=== PATIENT | male | born 1995 | race Caucasian/White ===

== ENCOUNTER 2019-05-29 03:27 | Emergency (ER) | payer SELFPAY ==
[2019-05-29] MEDS ORDERED: PIPERACILLIN/TAZOBACTAM 4.5 GM VIAL IV ONE ×2 (03:40→07:34)
--- NOTE | 2019-05-29 03:40 | ER Document Report ---
ED General - General Stated Complaint: POSS OVERDOSE Time Seen by Provider: 05/29/19 03:39 Notes: Patient is a 24-year-old male that presents to the emergency department for chief complaint of respiratory distress, after heroin overdose. History provided by EMS, apparently the patient was using heroin by snorting it this evening, and was unresponsive, no one was called, first responding police gave the patient 8 mg of intranasal Narcan, but he was still cyanotic per EMS, and unresponsive, they established an IV and gave him 1 mg IV, placed him on supplemental oxygen as his initial pulse ox was 77% on room air, I placed him on CPAP, and improved his pulse ox only to 84%, he was given a breathing treatment but it did not help, Nitropaste was added, as they are concerned about possible flash pulmonary edema. At this time the patient is alert, somnolent, but will answer questions, he does have nausea, but did not vomit apparently. He is not having any pain, but is having significant increased work of breathing, and is unable to bowl to provide any further history at this time. Past medical history obtained from EMS Past Medical History: Hypertension Past Surgical History: Unknown at this time Social History: Smokes cigarettes, and uses heroin, per brother, has not used heroin in a while. Family History: Reviewed and noncontributory for presenting illness Allergies: Reviewed, see documented allergy list. REVIEW OF SYSTEMS: Complete review of systems is not obtainable at this time secondary to the patient's current critical state. PHYSICAL EXAMINATION: Vital signs reviewed, nursing noted reviewed. GENERAL: Somnolent, acute respiratory distress, on CPAP currently, increased work of breathing HEAD: Atraumatic, normocephalic. EYES: extraocular movements intact, sclera anicteric, conjunctiva are normal. Pupils are mydriatic. PERRLA. ENT: nares patent, oropharynx clear without exudates. Moist mucous membranes. NECK: Normal range of motion, supple without lymphadenopathy LUNGS: Coarse lung sounds throughout, diminished more on the left compared to the right, on CPAP, increased work of breathing, respiratory distress. HEART: Heart rate tachycardic, regular rhythm, no audible murmur. ABDOMEN: Soft, obese, nontender, normoactive bowel sounds. No rebound, guarding, or rigidity. No masses appreciated. EXTREMITIES: Nontender, good range of motion, no pitting or edema. NEUROLOGICAL: No focal neurological deficits. Moves all extremities spontaneously Motor and sensory grossly intact on exam. PSYCH: Somnolent SKIN: Diaphoretic, warm, no rashes or lesions noted. - Related Data Allergies/Adverse Reactions: No Known Allergies Allergy (Unverified 06/09/18 22:01) Past Medical History - Social History Smoking Status: Current Every Day Smoker Family History: Reviewed & Not Pertinent Renal/ Medical History: Denies: Hx Peritoneal Dialysis Physical Exam - Vital signs Vitals: Resp Pulse Ox 37 H 94 05/29/19 03:30 05/29/19 03:30 Course - Re-evaluation Re-evalutation: Patient seen and examined vital signs reviewed. Laboratory data and imaging were ordered as appropriate for the patient's presenting symptoms and complaint, with consideration of any critical or life threatening conditions that may be associated with their obtained history and exam as noted above. Patient was treated with initially BiPAP therapy, but was failing this, he was having increased work of breathing, and his pulse ox would not improve above 87%, at this point it was decided to intubate the patient, and he was understa nding of this, prior to RSI, patient was given etomidate 20 mg and rocuronium 100 mg, patient was initially successfully intubated, end-tidal CO2, and good chest rise, condensation in the tubing, over there seem to be an air leak, despite inflating the cuff, if persistent air leak, and his pulse ox was not improving despite maximal vent settings, this point we exchanged the tube with a new ET tube, cuff was inflated, the patient was placed back on the ventilator, and his pulse ox came back up to 90%, on 100% FiO2, and 15 of PEEP. Results were reviewed when available and demonstrated significant leukocytosis, hemoconcentration, blood work was otherwise unremarkable including a negative troponin, chest x-ray demonstrated diffuse edema/infiltrates in the left lung, not so much in the right, concerning for possible aspiration versus ARDS, patient was given a dose of IV Zosyn, and placed initially on Versed for sedation, however his blood pressure was high, and he was switched to propofol, and given a dose of IV labetalol, which did improve his blood pressure. Shortly after receiving propofol, and the labetalol, the patient's blood pressure did drop, we did give him a 250 mL IV fluid bolus and held the propofol, his blood pressure came back up, pulse ox continued to improve, was coming up to 94-95%. The patient was re-evaluated and was improving on the ventilator Evaluation was most consistent with acute respiratory failure with hypoxia, possible aspiration, heroin overdose. Results were discussed with the patien's family at this point after careful consideration I feel that that patient should be transferred to [facility] due to need for critical care medicine in a patient with suspected aspiration pneumonitis versus ARDS, requiring maximal ventilatory settings at this time. This was discussed with the patient family that it is in the best interest for their care to be transferred, the risks and benefits of transfer were discussed, including but not limited to clinical deterioration during transport, respiratory distress, and potential for traumatic injuries. Patient family agreed with this plan of care. Discussed case with Dr. Blackman, who accepted the patient onto his service. *Note is created using voice recognition software and may contain spelling, syntax or grammatical errors. Laboratory 05/29/19 05/29/19 05/29/19 03:35 03:35 03:35 WBC 25.1 H RBC 6.33 H Hgb 18.5 H Hct 53.9 H MCV 85 MCH 29.2 MCHC 34.3 RDW 13.2 Plt Count 328 Lymph % (Auto) Not Reportable Kent % (Auto) Not Reportable Eos % (Auto) Not Reportable Baso % (Auto) Not Reportable Absolute Neuts (auto) Not Reportable Absolute Lymphs (auto) Not Reportable Absolute Monos (auto) Not Reportable Absolute Eos (auto) Not Reportable Absolute Basos (auto) Not Reportable Total Counted 100 Seg Neutrophils % Not Reportable Seg Neuts % (Manual) 74 Lymphocytes % (Manual) 16 Atypical Lymphs % 4 Monocytes % (Manual) 6 Eosinophils % (Manual) 0 Basophils % (Manual) 0 Abs Neuts (Manual) 18.6 H Abs Lymphs (Manual) 5.0 H Abs Monocytes (Manual) 1.5 H Absolute Eos (Manual) 0.0 Abs Basophils (Manual) 0.0 Toxic Granulation 1+ Toxic Vacuolation PRESENT Platelet Comment ADEQUATE Poikilocytosis SLIGHT Tear Drop Cells SLIGHT PT 13.4 INR 1.01 Sodium 141.1 Potassium 3.9 Chloride 103 Carbon Dioxide 24 Anion Gap 14 BUN 14 Creatinine 1.03 Est GFR ( Amer) > 60 Est GFR (MDRD) Non-Af > 60 Glucose 189 H POC Glucose Calcium 9.6 Total Bilirubin 0.5 Direct Bilirubin 0.2 Neonat Total Bilirubin Not Reportable Neonat Direct Bilirubin Not Reportable Neonat Indirect Bili Not Reportable AST 51 ALT 61 Alkaline Phosphatase 72 Troponin I Total Protein 6.7 Albumin 4.3 Salicylates < 1.0 L Acetaminophen < 10 L 05/29/19 05/29/19 03:35 03:53 WBC RBC Hgb Hct MCV MCH MCHC RDW Plt Count Lymph % (Auto) Kent % (Auto) Eos % (Auto) Baso % (Auto) Absolute Neuts (auto) Absolute Lymphs (auto) Absolute Monos (auto) Absolute Eos (auto) Absolute Basos (auto) Total Counted Seg Neutrophils % Seg Neuts % (Manual) Lymphocytes % (Manual) Atypical Lymphs % Monocytes % (Manual) Eosinophils % (Manual) Basophils % (Manual) Abs Neuts (Manual) Abs Lymphs (Manual) Abs Monocytes (Manual) Absolute Eos (Manual) Abs Basophils (Manual) Toxic Granulation Toxic Vacuolation Platelet Comment Poikilocytosis Tear Drop Cells PT INR Sodium Potassium Chloride Carbon Dioxide Anion Gap BUN Creatinine Est GFR ( Amer) Est GFR (MDRD) Non-Af Glucose POC Glucose 162 H Calcium Total Bilirubin Direct Bilirubin Neonat Total Bilirubin Neonat Direct Bilirubin Neonat Indirect Bili AST ALT Alkaline Phosphatase Troponin I < 0.012 Total Protein Albumin Salicylates Acetaminophen Chest X-Ray 05/29/19 03:39 IMPRESSION: Extensive left-sided opacity most likely representing pneumonia, consider aspiration. - Vital Signs Vital signs: Temp Pulse Resp BP Pulse Ox 37 H 91 L 05/29/19 03:30 05/29/19 04:15 - Laboratory Result Diagrams: 05/29/19 03:35 05/29/19 03:35 Laboratory results interpreted by me: 05/29/19 05/29/19 05/29/19 03:35 03:35 03:53 WBC 25.1 H RBC 6.33 H Hgb 18.5 H Hct 53.9 H Abs Neuts (Manual) 18.6 H Abs Lymphs (Manual) 5.0 H Abs Monocytes (Manual) 1.5 H Glucose 189 H POC Glucose 162 H Salicylates < 1.0 L Acetaminophen < 10 L - EKG Interpretation by Me Additional EKG results interpreted by me: EKG demonstrates sinus rhythm with normal rate, normal axis, QTC is somewhat prolonged, no evidence of acute ischemia in this EKG, no ST elevation. No prior for comparison. Procedures - Intubation Orotracheal Airway evaluation: Obese Mallampati Classification: Class 2 Medications: Etomidate - 20mg, Other - Rocuronium 100mg Intubation method: Orotracheal Blade size: 4 Equipment used: Glidescope ETT size: 8.0 ETT secured at: Teeth ETT secured at (cm): 23 Breath Sounds after Intubation: Equal End tidal CO2 confirmed: Yes Tidal volume: 500 FiO2: 100 PEEP: 15 Post Intubation Xray: Yes Notes: After the patient was initially intubated, it was noted that he was having a persistent air leak, despite inflating the cuff, with 15 mL's of air, at this point it was decided to bougie exchange the patient's ET tube, as his sats were declining, using [id number] we got his pulse ox back up to 85%, it did decrease down to 77%, new tube was placed, and patient was placed back on the ventilator, pulse ox came up to 90%. Critical Care Note - Critical Care Note Total time excluding time spent on procedures (mins): 80 Comments: Critical care time 80 minutes exclusive from separate billable procedures for a patient requiring complex medical decision making, and high potential for clinical deterioration. In a patient with acute respiratory failure requiring intubation ultimately transferred to a tertiary facility. Time spent obtaining history from patient or surrogate, discussions with consultants, development of treatment plan with patient or surrogate, evaluation of patient's response to treatment, examination of patient, ordering and performing treatments and interventions, ordering and review of laboratory studies, re-evaluation of patient's condition, ordering and review of radiographic studies and review of old charts Discharge - Discharge Clinical Impression: Acute respiratory failure with hypoxia Aspiration into respiratory tract Qualifiers: Encounter type: initial encounter Qualified Code(s): T17.908A - Unspecified foreign body in respiratory tract, part unspecified causing other injury, initial encounter Heroin overdose Qualifiers: Encounter type: initial encounter Injury intent: undetermined intent Qualified Code(s): T40.1X4A - Poisoning by heroin, undetermined, initial encounter Leukocytosis Qualifiers: Leukocytosis type: unspecified Qualified Code(s): D72.829 - Elevated white blood cell count, unspecified Condition: Critical Disposition: [facility]
[2019-05-29 04:01] LABS: INTERNATIONAL RATION (INR) 1.01; PROTHROMBIN TIME 13.4 SEC (11.4-15.4)
[2019-05-29] MEDS ORDERED: MIDAZOLAM HCL 50 MG/100 ML RTUINJ ONE ×2 (04:02→06:12)
[2019-05-29 04:05] LABS: ALBUMIN 4.3 g/dL (3.5-5.0); ALKALINE PHOSPHATASE 72 U/L (38-126); ANION GAP 14 (5-19); ASPARTATE AMINO TRANSFERASE 51 U/L (17-59); BILIRUBIN,DIRECT 0.2 mg/dL (0.0-0.4); BILIRUBIN,TOTAL 0.5 mg/dL (0.2-1.3); BLOOD UREA NITROGEN 14 mg/dL (7-20); CALCIUM 9.6 mg/dL (8.4-10.2); CARBON DIOXIDE 24 mmol/L (22-30); CHLORIDE 103 mmol/L (98-107); GLUCOSE 189 mg/dL (75-110); POTASSIUM 3.9 mmol/L (3.6-5.0); TOTAL PROTEIN 6.7 g/dL (6.3-8.2)
[2019-05-29 04:06] LABS: HEMATOCRIT 53.9 % (37.9-51.0); HEMOGLOBIN 18.5 g/dL (13.5-17.0); MEAN CORPUSCULAR HEMOGLOBIN 29.2 pg (27.0-33.4); MEAN CORPUSCULAR HGB CONC 34.3 g/dL (32.0-36.0); MEAN CORPUSCULAR VOLUME 85 fl (80-97); PLATELET COUNT 328 10^3/uL (150-450); RED BLOOD COUNT 6.33 10^6/uL (4.35-5.55); RED CELL DISTRIBUTION WIDTH 13.2 % (11.5-14.0); WHITE BLOOD COUNT 25.1 10^3/uL (4.0-10.5)
[2019-05-29 04:18] LABS: ABSOLUTE MONOCYTES # (MANUAL) 1.5 10^3/uL (0.1-1.4); BASOPHILS % (MANUAL) 0 % (0-2); EOSINOPHILS % (MANUAL) 0 % (0-6); LYMPHOCYTES % (MANUAL) 16 % (13-45); MONOCYTES % (MANUAL) 6 % (3-13); SEGMENTED NEUTROPHILS % (MAN) 74 % (42-78); TOTAL CELLS COUNTED 100
[2019-05-29 04:19] LABS: TOXIC GRANULATION 1+; TOXIC VACUOLATION PRESENT
[2019-05-29 04:20] LABS: POIKILOCYTOSIS SLIGHT; TEAR DROP CELLS SLIGHT
[2019-05-29 04:21] LABS: PLATELET COMMENT ADEQUATE
--- NOTE | 2019-05-29 04:39 | RADIOLOGY REPORT (SQ) ---
Chest single view on 05/29/2019 at 3:44 AM CLINICAL INDICATION: Overdose, respiratory failure COMPARISON: None FINDINGS: There is extensive patchy opacity throughout the left lung worrisome for pneumonia, consider aspiration. Heart is within normal limits for size. No bony abnormality is noted. IMPRESSION: Extensive left-sided opacity most likely representing pneumonia, consider aspiration.
[2019-05-29] MEDS ORDERED: ETOMIDATE INJ/PF 20 MG/10 ML SDV IV ONE ×2 (04:42→20:11)
[2019-05-29] MEDS ORDERED: ROCURONIUM BROMIDE INJ 50 MG/5 ML VIAL IV ONE ×2 (04:42→22:00)
[2019-05-29] MEDS ORDERED: PROPOFOL 1,000 MG/100 ML INFUS..BTL IV ONE (04:46)
[2019-05-29] MEDS ORDERED: LABETALOL HCL INJ 20 MG/4 ML DISP.SYRIN IV ONE ×2 (04:54→04:55)
[2019-05-29 05:02] LABS: ACETAMINOPHEN < 10 ug/mL (10-30); SALICYLATE < 1.0 mg/dL (2.0-20.0)
[2019-05-29] MEDS ORDERED: FENTANYL CITRATE INJ/PF 100 MCG/2 ML AMPUL ONE (05:21)
--- NOTE | 2019-05-29 05:23 | RADIOLOGY REPORT (SQ) ---
EXAM DESCRIPTION: XR CHEST 1 VIEW COMPLETED DATE/TME: 05/29/2019 00:00 CLINICAL HISTORY: 24 years Male, INTUBATION COMPARISON: Same day. NUMBER OF VIEWS/TECHNIQUE: 1/AP FINDINGS: Tip of an enteric tube is obscured at the level of the distal esophagus. Consider advancement or upper abdominal imaging, as warranted. Moderate to severe mixed interstitial and airspace opacity predominantly involving the left hemithorax and medial right hemithorax. Adequate appearing endotracheal tube. No pneumothorax. Stable bony thorax. IMPRESSION: Tip of an enteric tube is obscured at the level of the distal esophagus. Consider advancement or upper abdominal imaging, as warranted. Moderate to severe mixed interstitial and airspace opacity predominantly involving the left hemithorax and medial right hemithorax. Interval worsening.
[2019-05-29 05:34] LABS: URINE AMPHETAMINES SCREEN NEGATIVE; URINE BARBITURATES SCREEN NEGATIVE; URINE BENZODIAZEPINES SCREEN NEGATIVE; URINE COCAINE SCREEN UNCONFIRMED POSITIVE; URINE MARIJUANA (THC) SCREEN NEGATIVE; URINE METHADONE SCREEN NEGATIVE; URINE PHENCYCLIDINE SCREEN NEGATIVE
[2019-05-29] MEDS ORDERED: MIDAZOLAM 2 MG/2 ML INJ ONE ×2 (06:28→06:45)
--- NOTE | 2019-05-29 07:08 | EKG REPORT ---
SEVERITY:- ABNORMAL ECG - SINUS RHYTHM PROLONGED QT INTERVAL NONSPECIFIC LATERAL ST-T CHANGES : Confirmed by: Taz Walton MD 29-May-2019 07:07:53
[2019-05-29] MEDS ORDERED: MIDAZOLAM HCL 50 MG/100 ML RTUINJ IV PRN ×2 (07:17→07:18)
[2019-05-29] MEDS ORDERED: MIDAZOLAM 2 MG/2 ML INJ IV ONE ×2 (07:18)
[2019-05-29] MEDS ORDERED: FENTANYL CITRATE INJ/PF 250 MCG/5 ML AMPULE IV ONE (07:19)
[2019-05-29] MEDS ORDERED: PROPOFOL 1,000 MG/100 ML INFUS..BTL IV PRN ×2 (07:20→08:35)
--- NOTE | 2019-05-29 08:13 | ER Document Report ---
Doctor's Note Notes: 05/29/19 08:12 Transport has arrived to take the patient to [facility]. He remains on a ventilator. He is oxygenating well. His blood pressure and heart rate are satisfactory. He is stable for transport.
[2019-05-29 08:26] VITALS: BP 98/58
== END 2019-05-29 09:17 | disposition short-term general hospital (02) ==
LOC: ER 03:27
PROC: 0BH17EZ Insertion of Endotracheal Airway into Trachea, Via Natural or Artificial Opening (ICD-10-PCS; principal; 2019-05-29)
DX: J96.01 Acute respiratory failure with hypoxia (principal); T17.908A Unspecified foreign body in respiratory tract, part unspecified causing other injury, initial encounter; T40.1X4A Poisoning by heroin, undetermined, initial encounter; D72.829 Elevated white blood cell count, unspecified; R11.0 Nausea; Y92.9 Unspecified place or not applicable; I10 Essential (primary) hypertension; F17.210 Nicotine dependence, cigarettes, uncomplicated
CPT/HCPCS: 93005; 99291; 99292; 96375; 96365; 36415; 82962; 80307 ×3; 85025; 85610; 80053; 84484; 71045; 94660 ×2; 31500; 93010; J2250 ×2; J3490 ×3; J3010; J2704; J2543

== ENCOUNTER 2019-09-11 13:03 | Emergency (ER) | payer SELFPAY ==
[2019-09-11] MEDS ORDERED: IBUPROFEN 600 MG TABLET PO ONE (13:57)
--- NOTE | 2019-09-11 13:58 | ER Document Report ---
ED Hand/Wrist Injury - General Chief Complaint: Hand Injury Stated Complaint: RIGHT HAND INJURY, SWELLING Time Seen by Provider: 09/11/19 13:52 Primary Care Provider: [facility] [Provider Group] - [facility] - Follow up as needed [facility] [Provider Group] - Follow up as needed [facility] [Provider Group] - Follow up as needed [facility] [Provider Group] - Follow up as needed Mode of Arrival: Ambulatory Information source: Patient Notes: 24-year-old male presented to ED for complaint of pain to the right hand. He states he dropped a ladder sheet back on it about 2 weeks ago and has not been to the doctor yet. He has a lot of pain especially to the fifth finger and the ulnar side of his hand. He states he is not able to move the pinky at this time. He is alert oriented respirations regular and unlabored. He is right- handed. 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 Lives with: Family Family History: Reviewed & Not Pertinent Patient has suicidal ideation: No Patient has homicidal ideation: No - Past Medical History Cardiac Medical History: Reports: Hx Hypertension Pulmonary Medical History: Reports: None EENT Medical History: Reports: None Neurological Medical History: Reports: None Endocrine Medical History: Reports: None Renal/ Medical History: Reports: None Malignancy Medical History: Reports None GI Medical History: Reports: None Musculoskeletal Medical History: Reports Hx Musculoskeletal Trauma Skin Medical History: Reports None Psychiatric Medical History: Reports: Hx Attention Deficit Hyperactivity Disorder Traumatic Medical History: Reports: Hx Fractures - Knee Infectious Medical History: Reports: None Past Surgical History: Reports: Hx Orthopedic Surgery - Left knee surgery Review of Systems - Review of Systems Constitutional: No symptoms reported EENT: No symptoms reported Cardiovascular: No symptoms reported Respiratory: No symptoms reported Gastrointestinal: No symptoms reported Genitourinary: No symptoms reported Male Genitourinary: No symptoms reported Musculoskeletal: No symptoms reported Skin: No symptoms reported Hematologic/Lymphatic: No symptoms reported Neurological/Psychological: No symptoms reported Physical Exam - Vital signs Vitals: Temp Pulse Resp BP Pulse Ox 98.4 F 85 18 152/96 H 98 09/11/19 13:47 09/11/19 13:47 09/11/19 13:47 09/11/19 13:47 09/11/19 13:47 Interpretation: Normal - General General appearance: Appears well, Alert - HEENT Head: Normocephalic, Atraumatic Eyes: Normal Pupils: PERRL - Respiratory Respiratory status: No respiratory distress Chest status: Nontender Breath sounds: Normal Chest palpation: Normal - Cardiovascular Rhythm: Regular Heart sounds: Normal auscultation Murmur: No - Abdominal Inspection: Normal Distension: No distension Bowel sounds: Normal Tenderness: Nontender Organomegaly: No organomegaly - Back Back: Normal, Nontender - Extremities General upper extremity: Normal temperature General lower extremity: Normal inspection, Nontender, Normal color, Normal ROM, Normal temperature, Normal weight bearing. No: Cyrus's sign Hand: Tender, Ecchymosis, No evidence of human bite, No evidence of FB, Swelling. No: Abrasion, Deformity, Dislocation, Instability, Laceration, Tendon deficit - Neurological Neuro grossly intact: Yes Cognition: Normal Orientation: AAOx4 [place] Coma Scale Eye Opening: Spontaneous [place] Coma Scale Verbal: Oriented [place] Coma Scale Motor: Obeys Commands Juan David Coma Scale Total: 15 Speech: Normal Motor strength normal: LUE, RUE, LLE, RLE Sensory: Normal - Psychological Associated symptoms: Normal affect, Normal mood - Skin Skin Temperature: Warm Skin Moisture: Dry Skin Color: Normal Course - Re-evaluation Re-evalutation: 09/11/19 15:01 Irena x-ray with patient and written report of x-ray given to patient. Patient given follow-up for local doctor and for orthopedics. Patient was instruction if the hand does not improve within the next week he is to follow-up with orthopedics. Patient verbalized understanding and agreement with treatment plan patient was discharged home. - Vital Signs Vital signs: Temp Pulse Resp BP Pulse Ox 98.4 F 85 18 152/96 H 98 09/11/19 13:52 09/11/19 13:47 09/11/19 13:52 09/11/19 13:47 09/11/19 13:52 - Diagnostic Test Radiology reviewed: Image reviewed, Reports reviewed Discharge - Discharge Clinical Impression: Contusion of right hand including fingers Qualifiers: Encounter type: initial encounter Qualified Code(s): S60.221A - Contusion of right hand, initial encounter Condition: Stable Disposition: HOME, SELF-CARE Additional Instructions: CONTUSION: Your injury has resulted in a contusion -- a crushing of the deep tissues. No injury to important structures was detected during the physician's exam. Contusions vary in the amount of pain they cause, and in the length of time required for healing. Typically, the area will become bruised, and will remain painful to touch for two or three weeks. However, most patients are back to working and playing within a few days. After the initial period of rest and cold-packs, your symptoms (together with the doctor's recommendations) will determine how rapidly you can get back to full activity. Usually this means "do what feels okay, but don't do things that hurt." If re-examination was recommended, it's important to follow up as instructed. Call the doctor or return any time if pain increases, if swelling becomes severe, if you develop numbness or weakness in an injured extremity, or if any other alarming symptoms occur. USE OF TYLENOL (ACETAMINOPHEN): Acetaminophen may be taken for pain relief or fever control. It's much safer than aspirin, offering a wider range of "safe" dosages. It is safe during . Some brand names are Tylenol, Panadol, Datril, Anacin 3, Tempra, and Liquiprin. Acetaminophen can be repeated every four hours. The following are maximum recommended dosages: WEIGHT Dose Drops Elixir Chew able(80mg) (LBS.) drprs=droppers tsp=teaspoon 6 40 mg 0.4 ml (1/2) 6-11 80 mg 0.8 ml (full) tsp 1 tab 12-16 120 mg 1 1/2 drprs 3/4 tsp 1 1/2 tabs 17-23 160 mg 2 drprs 1 tsp 2 tabs 24-30 240 mg 3 drprs 1 1/2 tsp 3 tabs 30-35 320 mg 2 tsp 4 tabs 36-41 360 mg 2 1/4 tsp 4 1/2 tabs 42-47 400 mg 2 1/2 tsp 5 tabs 48-53 480 mg 3 tsp 6 tabs 54-59 520 mg 3 1/4 tsp 6 1/2 tabs 60-64 560 mg 3 1/2 tsp 7 tabs 65-70 600 mg 3 3/4 tsp 7 1/2 tabs 71-76 640 mg 4 tsp 8 tabs 77-82 720 mg 4 1/2 tsp 9 tabs 83-88 800 mg 5 tsp 10 tabs >89 pounds or adults 650 mg to 900 mg Acetaminophen can be repeated every four hours. Maximum dose not to exceed 4000 mg a day. These maximum recommended dosages are slightly higher than the dosages written on the product container, but these dosages are very safe and below the toxic dosage for acetaminophen. ICE & ELEVATION: Apply ice packs frequently against the painful area. Many different schedules are recommended, such as "20 minutes on, 20 minutes off" or "one hour ice, two hours rest." If you need to work, you may need to go longer between ice treatments. You should plan to have the area ice packed AT LEAST one-fourth of the time. The ice should be applied over the wrap, tape, or splint, or over a layer of cloth -- not directly against the skin. Some ice bags have a built-in cloth and can be put directly on the skin. Your injured part should be elevated as much as possible over the next 48 hours. Try to keep the injury above the level of the heart. Avoid use of the injured area. Elevation and rest will decrease the swelling. USE OF [id number] IBUPROFEN: Ibuprofen (Advil, Nuprin, Medipren, Motrin IB) is a medication for fever and pain control. In addition, it has anti- inflammatory effects which may be beneficial, especially in the treatment of injuries. It's best to take ibuprofen with food. Persons with ulcer disease or allergy to aspirin should notify their physician of this before taking ibuprofen. Ibuprofen can be given every four to six hours, for a total of four doses daily. Age Pain or fever dose Antiinflammatory dose 6-8 yr 200 mg (1 tab) 200 mg (1 tab) 9-11 yr 200 mg (1 tab) 200-400 mg (1-2 tab) 11-14 yr 200-400 mg (1-2 tab) 400 mg (2 tab) 15-adult 400 mg (2 tab) 600 mg (3 tab) FOLLOW-UP CARE: If you have been referred to a physician for follow-up care, call the physicians office for an appointment as you were instructed or within the next two days. If you experience worsening or a significant change in your symptoms, notify the physician immediately or return to the Emergency Department at any time for re-evaluation. Forms: Elevated Blood Pressure, Smoking Cessation Education, Return to Work Referrals: [facility] [Provider Group] - Follow up as needed [facility] [Provider Group] - Follow up as needed [facility] [Provider Group] [facility] as [facility] [[facility]] - Follow up as needed [facility] [Provider Group] - Follow up as needed
--- NOTE | 2019-09-11 14:39 | RADIOLOGY REPORT (SQ) ---
EXAM DESCRIPTION: HAND RIGHT 3 VIEWS COMPLETED DATE/TIME: 09/11/2019 2:15 pm REASON FOR STUDY: pain and injury to right hand COMPARISON: None. EXAM PARAMETERS: NUMBER OF VIEWS: Three views. TECHNIQUE: AP, lateral and oblique radiographic images acquired of the right hand. LIMITATIONS: None. FINDINGS: MINERALIZATION: Normal. BONES: No acute fracture or dislocation. No worrisome bone lesions. JOINTS: No effusions. SOFT TISSUES: No soft tissue swelling. No foreign body. OTHER: No other significant finding. IMPRESSION: NEGATIVE STUDY OF THE RIGHT HAND. NO RADIOGRAPHIC EVIDENCE OF ACUTE INJURY. TECHNICAL DOCUMENTATION: JOB ID: [id number] [employer]- All Rights Reserved Reading location - IP/workstation name: [email or web address]
[2019-09-11 15:05] VITALS: BP 147/82
== END 2019-09-11 15:06 | disposition home or self-care (01) ==
LOC: ER 13:03
DX: S60.221A Contusion of right hand, initial encounter (principal); M79.641 Pain in right hand; M79.644 Pain in right finger(s); W22.8XXA Striking against or struck by other objects, initial encounter; F17.210 Nicotine dependence, cigarettes, uncomplicated; I10 Essential (primary) hypertension
CPT/HCPCS: 99283; 99406

== ENCOUNTER 2019-09-22 12:03 | Emergency (ER) | payer SELFPAY ==
[2019-09-22] MEDS ORDERED: ONDANSETRON 4 MG TAB.RAPDIS PO ONE (13:20)
--- NOTE | 2019-09-22 13:23 | ER Document Report ---
ED Medical Screen (RME) - General Chief Complaint: Flu Symptoms Stated Complaint: SHORTNESS OF BREATH,COUGH,VOMITING Time Seen by Provider: 09/22/19 13:15 Mode of Arrival: Ambulatory Information source: Patient Notes: Otherwise healthy 24-year-old male presented emergency department chief complaint of cough, congestion, nausea, vomiting and diarrhea. Patient reports symptoms started yesterday. Patient also reports all over body aches. He states he got a flu shot yesterday. He is unsure if he has been running a fever. Exam: Cobblestone pattern noted on posterior oropharynx. No tonsillar swelling or exudates noted. Lung sounds clear and equal bilaterally. I have greeted and performed a rapid initial assessment of this patient. A comprehensive ED assessment and evaluation of the patient, analysis of test results and completion of the medical decision making process will be conducted by additional ED providers. I have specifically instructed the patient or family members with the patient to immediately return to any nursing staff should anything change in the patient's condition or with their chief complaint. TRAVEL OUTSIDE OF THE [place] IN LAST 30 DAYS: No - Related Data Allergies/Adverse Reactions: No Known Allergies Allergy (Verified 09/22/19 13:08) Home Medications: amlodipine. lisinopril Past Medical History - Social History Chew tobacco use (# tins/day): No Frequency of alcohol use: None Drug Abuse: None - Past Medical History Cardiac Medical History: Reports: Hx Hypertension Musculoskeltal Medical History: Reports Hx Musculoskeletal Trauma Psychiatric Medical History: Reports: Hx Attention Deficit Hyperactivity Disorder Traumatic Medical History: Reports: Hx Fractures - Knee Past Surgical History: Reports: Hx Orthopedic Surgery - Left knee surgery Physical Exam - Vital signs Vitals: Temp Pulse Resp BP Pulse Ox 98.6 F 92 18 153/82 H 96 09/22/19 12:07 09/22/19 12:07 09/22/19 12:07 09/22/19 12:07 09/22/19 12:07 Course - Vital Signs Vital signs: Temp Pulse Resp BP Pulse Ox 98.6 F 92 18 153/82 H 96 09/22/19 13:08 09/22/19 12:07 09/22/19 13:08 09/22/19 12:07 09/22/19 13:08
[2019-09-22 14:02] LABS: A TYPE INFLUENZA AG NEGATIVE (NEGATIVE); B INFLUENZA AG NEGATIVE (NEGATIVE)
[2019-09-22] MEDS ORDERED: BENZONATATE 100 MG CAPSULE PO ONE (14:31)
[2019-09-22] MEDS ORDERED: ONDANSETRON ODT 4 MG TAB (6 TAB/ER DISP) PO PRN (14:32)
--- NOTE | 2019-09-22 14:32 | ER Document Report ---
ED Flu Like - General Chief Complaint: Flu Symptoms Stated Complaint: SHORTNESS OF BREATH,COUGH,VOMITING Time Seen by Provider: 09/22/19 13:15 Mode of Arrival: Ambulatory Notes: 24-year-old male with no past medical history presents the emergency department with chief complaint of cough congestion, nausea and vomiting, diarrhea, and hot and cold symptoms for the past 24 hours. Patient also describes generalized body aches. Patient got his shot yesterday. 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 TRAVEL OUTSIDE OF THE [place] IN LAST 30 DAYS: No - Related Data Allergies/Adverse Reactions: No Known Allergies Allergy (Verified 09/22/19 13:08) Home Medications: amlodipine. lisinopril Past Medical History - General Information source: Patient - Social History Smoking Status: Current Every Day Smoker Chew tobacco use (# tins/day): No Frequency of alcohol use: None Drug Abuse: None Family History: Reviewed & Not Pertinent Patient has suicidal ideation: No Patient has homicidal ideation: No - Past Medical History Cardiac Medical History: Reports: Hx Hypertension Musculoskeletal Medical History: Reports Hx Musculoskeletal Trauma Psychiatric Medical History: Reports: Hx Attention Deficit Hyperactivity Disorder Traumatic Medical History: Reports: Hx Fractures - Knee Past Surgical History: Reports: Hx Orthopedic Surgery - Left knee surgery Review of Systems - Review of Systems Constitutional: See HPI EENT: See HPI Cardiovascular: No symptoms reported Respiratory: No symptoms reported Gastrointestinal: See HPI Genitourinary: No symptoms reported Male Genitourinary: No symptoms reported Musculoskeletal: No symptoms reported Skin: No symptoms reported Hematologic/Lymphatic: No symptoms reported Neurological/Psychological: No symptoms reported Physical Exam - Vital signs Vitals: Temp Pulse Resp BP Pulse Ox 98.6 F 92 18 153/82 H 96 09/22/19 12:07 09/22/19 12:07 09/22/19 12:07 09/22/19 12:07 09/22/19 12:07 - Notes Notes: PHYSICAL EXAMINATION: Reviewed vital signs and charting by RN GENERAL: Alert, interacts well. No acute distress. HEAD: Normocephalic, atraumatic. EYES: Pupils equal and round. Extraocular movements intact. ENT: Oral mucosa moist, tongue midline. NECK: Full range of motion. Trachea midline. LUNGS: Clear to auscultation bilaterally, no wheezes, rales, or rhonchi. No respiratory distress. HEART: Regular rate and rhythm. No murmur ABDOMEN: soft, non-tender. No distention. Bowel sounds present EXTREMITIES: Moves all 4 extremities spontaneously. No edema, No cyanosis. PSYCH: Normal affect, normal mood. SKIN: Warm, dry, normal turgor. No rashes or lesions noted. Course - Re-evaluation Re-evalutation: 09/22/19 14:32 Patient presents with cough, vomiting, diarrhea, and fever at home consistent with a flulike illness although our flu test here is negative. Clinical history and exam is not consistent with an acute bacterial meningitis, encephalitis, pneumonia, there is no evidence of a cellulitis on examination. Patient likewise denies any urinary symptoms. Patient does not have any focal abdominal tenderness to suggest an acute biliary pathology, acute appendicitis, acute mesenteric ischemia, bowel obstruction, bowel, or any other life-threatening acute intra-abdominal pathology as the etiology of the fever and additional symptoms today. Labs are otherwise unremarkable. Patient is tolerated oral intake without difficulty. Vitals at time of reassessment are within normal limits. At this time will discharge with return precautions and follow-up recommendations. Verbal discharge instructions given a the bedside and opportunity for questions given. Medication warnings reviewed. Patient is in agreement with this plan and has verbalized understanding of return precautions and the need for primary care follow-up in the next 24-72 hours. - Vital Signs Vital signs: Temp Pulse Resp BP Pulse Ox 98.6 F 92 18 153/82 H 96 09/22/19 13:08 09/22/19 12:07 09/22/19 13:08 09/22/19 12:07 09/22/19 13:08 Discharge - Discharge Clinical Impression: Flu-like symptoms, Cough Condition: Good Disposition: HOME, SELF-CARE Additional Instructions: You do not have influenza and therefore are suffering from a viral upper respiratory infection. There is no treatment that is effective for this diagnosis other than supportive care at home. This includes drinking plenty of fluids, using Tylenol or ibuprofen as needed for fever and discomfort, and Zofran as needed for nausea and vomiting. Please follow closely with you primary care physician the next 1-2 days regarding this diagnosis. Return to the emergency department immediately if you began to have persistent vomiting prevents you from being able to keep fluids down for more than 12 hours, you pass out, you began having difficulty breathing, you become confused, or you have any other symptoms that are worrisome to you. Forms: Return to Work
[2019-09-22 15:13] VITALS: BP 139/67
== END 2019-09-22 15:13 | disposition home or self-care (01) ==
LOC: ER 12:03
DX: R05 Cough (principal); R11.10 Vomiting, unspecified; R19.7 Diarrhea, unspecified; R50.9 Fever, unspecified; I10 Essential (primary) hypertension; F17.200 Nicotine dependence, unspecified, uncomplicated
CPT/HCPCS: 99283; 87804; S0119